=== PATIENT | male | born 1935 ===

== ENCOUNTER 2017-06-25 14:21 | Observation (INO) | payer MEDICARE ==
[2017-06-25] MEDS ORDERED: DiphenhydrAMINE 50 mg/ml Inj IV STA (15:29)
[2017-06-25] MEDS ORDERED: Albuterol 0.083% Inhal Sol (2.5 mg/3 mL) UD INH STA (15:29)
--- NOTE | 2017-06-25 15:58 | ED PDOC ---
HPI: Allergic Reaction Time Seen by Provider: 06/25/17 14:36 Chief Complaint (Nursing): Allergic Reaction Chief Complaint (Provider): Allergic reaction History Per: Patient History/Exam Limitations: no limitations Onset/Duration Of Symptoms: Hrs (this morning) Current Symptoms Are (Timing): Still Present Associated Symptoms: Skin Rash (trunk), Swelling (upper lip), Itching, Redness ( trunk). denies: Trouble Swallowing, Chest Pain Home/EMS Treatment: None Additional Complaint(s): Ulysses Kelsey is an 81 year old male, with a past medical history of hypertension, who presents to the emergency department complaining of upper lip swelling and itchy rash on trunk onset since this morning. Patient states he woke up and noticed the swelling and redness on trunk. He denies drinking, eating or using anything new. Patient reports he is currently taking lisinopril. He denies any tongue or throat swelling, difficulty breathing or swallowing, chest pain, cough or other medical complaints. PMD: Dr. Albina Villela (Crypt[facility]ator) Past Medical History Reviewed: Historical Data, Nursing Documentation, Vital Signs Vital Signs: Last Vital Signs Temp 98.0 F 06/25/17 14:25 Pulse 88 06/25/17 15:09 Resp 18 06/25/17 15:09 BP 175/113 H 06/25/17 14:25 Pulse Ox 99 06/25/17 15:09 - Medical History PMH: COPD, HTN - Surgical History Surgical History: Hernia Repair - Family History Family History: States: Unknown Family Hx - Social History Current smoker - smoking cessation education provided: No Alcohol: None Drugs: Denies - Home Medications Home Medications: Ambulatory Orders Medication Instructions Recorded Albuterol HFA [Ventolin HFA 90 2 puff IH Q6H PRN 06/25/17 mcg/actuation (8 g)] Bicalutamide [Casodex] 50 mg PO DAILY 06/25/17 Fluticasone Propionate [Flovent 2 puff IH Q12 06/25/17 Hfa] Tamsulosin [Flomax] 0.4 mg PO DAILY 06/25/17 amLODIPine [Norvasc] 5 mg PO DAILY #30 tab 06/26/17 - Allergies Allergies/Adverse Reactions: Allergies Allergy/AdvReac Type Severity Reaction Status Date / Time No Known Allergies Allergy Verified 06/25/17 14:25 Review of Systems ROS Statement: Except As Marked, All Systems Reviewed And Found Negative ENT: Positive for: Mouth Swelling (upper lip swollen. ). Negative for: Throat Swelling (difficulty swallowing.), Other (tongue swelling. ) Cardiovascular: Negative for: Chest Pain Respiratory: Negative for: Cough, Shortness of Breath Skin: Positive for: Rash (redness on trunk) Physical Exam - Reviewed Nursing Documentation Reviewed: Yes Vital Signs Reviewed: Yes - Physical Exam Appears: Positive for: Non-toxic Head Exam: Positive for: ATRAUMATIC, NORMAL INSPECTION, NORMOCEPHALIC Skin: Positive for: Warm, Dry, Rash (limited patchy urticaria-like rash on trunk ) Eye Exam: Positive for: Normal appearance, EOMI, PERRL ENT: Positive for: Other (upper lip swelling. No tongue swelling, throat is clear. No edema, no pharyngeal or tonsil edema.). Negative for: Tonsillar Swelling Neck: Positive for: Painless ROM, Supple Cardiovascular/Chest: Positive for: Regular Rate, Rhythm. Negative for: Murmur Respiratory: Positive for: Wheezing (diffused b/l). Negative for: Respiratory Distress Gastrointestinal/Abdominal: Positive for: Normal Exam, Soft. Negative for: Tenderness, Guarding, Rebound Back: Positive for: Normal Inspection. Negative for: L CVA Tenderness, R CVA Tenderness, Vertebral Tenderness Extremity: Positive for: Normal ROM. 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 Differential includes but not limited to anaphylaxis, allergic reaction to lisinopril or other agent. MARC/ARBs induced angioedema. Initial Plan: --Albuterol 2.5 mg INH --Benadryl 25 mg IV --Pepcid 20 mg IVP --SOLU-medrol 125 mg IVP --Peak flow pre/post Tx --Reevaluation Time: 17:17 Upon reevaulation, patient's wheezing is improved, lip swelling is still present , and urticaria is still present, but improved. Patient will be admitted for anaphylactic reaction and asthma attack. Time: 19:00 Patient signed over to Dr. Enamorado pending reevaluation. Scribe Attestation: Documented by Mayank Gutierrez and Vin Foster, acting as scribes for Ashlie Truong MD Provider Scribe Attestation: All medical record entries made by the Scribe were at my direction and personally dictated by me. I have reviewed the chart and agree that the record accurately reflects my personal performance of the history, physical exam, medical decision making, and the department course for this patient. I have also personally directed, reviewed, and agree with the discharge instructions and disposition.
[2017-06-25 17:51] LABS: BASO # 0.1 K/uL (0.0-0.2); BASO % 0.6 % (0.0-2.0); EOS # 0.1 K/uL (0.0-0.7); EOS % 1.5 % (0.0-4.0); HEMOGLOBIN 14.8 g/dL (12.0-18.0); LYMPH # 2.8 K/uL (1.0-4.3); LYMPH % 32.8 % (20.0-40.0); MEAN CELL VOLUME 97.5 fl (80.0-94.0); MEAN CORPUSCULAR HEMOGLOBIN 33.1 pg (27.0-31.0); MEAN PLATELET VOLUME 8.7 fl (7.2-11.7); MONO # 0.5 K/uL (0.0-0.8); MONO % 6.2 % (0.0-10.0); NEUT % 58.9 % (50.0-75.0); NRBC % 0.1 % (0.0-0.0); RBC 4.47 Mil/uL (4.40-5.90); RED CELL DISTRIBUTION WIDTH 13.1 % (11.5-14.5); WHITE BLOOD COUNT 8.5 K/uL (4.8-10.8)
[2017-06-25] MEDS ORDERED: EPINEPHrine 1 mg/ml (1:1000) Inj SC ONE (17:54)
[2017-06-25 17:56] LABS: BLOOD UREA NITROGEN 21 mg/dl (9-20); CALCIUM 9.2 mg/dL (8.4-10.2); GFR AFRICAN-AMERICAN > 60; GFR NON-AFRICAN AMERICAN 58
--- NOTE | 2017-06-25 17:56 | CP.PCM.CON ---
History of Present Illness - History of Present Illness History of Present Illness: Reason for Consult: eval of lip swelling HPI: 81 year old male PMH HTN on Lisinopril which he has been taking for years, BPH, hx prostate ca, asthma/COPD, presents with a one day history of upper lip swelling without any involvement of the tongue or throat. Patient has no difficulty breathing or swallowing and states that it has improved since this morning. This also presented with some mild urticarial rashes around his neck and mild wheezing. These have since resolved. He has received H1/H2 blockers, steroids, and a mild dose of epinephrine with improvement. Possible angioedema, however patient has been taking Lisinopril for years. This presents more like an allergic reaction given the urticaria, however patient denies exposure to any new agents/foods. He is HD stable, in no acute distress. As his symptoms are resolving, patient is medically stable for discharge home and follow up with PCP in a few days. Also recommend cessation of Lisinopril, possible adjusting medications to Norvasc with follow up with his primary care physician. ROS: per HPI all other systems reviewed and negative PMSH: as above, Hernia repair FH: denies SH: denies tobacco, ETOH, IVDU. Meds: as below NKDA Past Patient History - Past Social History Alcohol: None Drugs: Denies - CARDIAC Hx Hypertension: Yes - PULMONARY Hx Chronic Obstructive Pulmonary Disease (COPD): Yes - PSYCHIATRIC Hx Substance Use: No - SURGICAL HISTORY Hx Herniorrhaphy: Yes - ANESTHESIA Hx Anesthesia: Yes Hx Anesthesia Reactions: No Meds Allergies/Adverse Reactions: Allergies Allergy/AdvReac Type Severity Reaction Status Date / Time No Known Allergies Allergy Verified 06/25/17 14:25 - Medications Medications: Current Medications Epinephrine HCl (Epinephrine) 0.1 mg SC ONCE ONE Stop: 06/25/17 17:55 Physical Exam - Constitutional Appears: Non-toxic, No Acute Distress - Head Exam Head Exam: ATRAUMATIC, NORMOCEPHALIC - Eye Exam Eye Exam: EOMI, Normal appearance Pupil Exam: NORMAL ACCOMODATION - ENT Exam ENT Exam: Mucous Membranes Moist, Normal Oropharynx Additional comments: upper lip swelling, improving. - Respiratory Exam Respiratory Exam: Clear to Auscultation Bilateral, NORMAL BREATHING PATTERN. absent: Rales, Rhonchi, Wheezes - Cardiovascular Exam Cardiovascular Exam: RRR, +S1, +S2. absent: Irregular Rhythm - GI/Abdominal Exam GI & Abdominal Exam: Normal Bowel Sounds, Soft. absent: Mass, Organomegaly, Tenderness - Extremities Exam Extremities exam: Positive for: normal capillary refill, normal inspection. Negative for: calf tenderness - Back Exam Back exam: absent: CVA tenderness (L), CVA tenderness (R) - Neurological Exam Neurological exam: Alert, Oriented x3 - Psychiatric Exam Psychiatric exam: Normal Affect, Normal Mood - Skin Skin Exam: Dry, Warm Results - Vital Signs Recent Vital Signs: Last Vital Signs Temp 98.0 F 06/25/17 14:25 Pulse 88 06/25/17 15:09 Resp 18 06/25/17 15:09 BP 175/113 H 06/25/17 14:25 Pulse Ox 99 06/25/17 17:26 - Labs Result Diagrams: 06/25/17 17:25 06/25/17 17:25 Labs: Laboratory Results - last 24 hr 06/25/17 17:25 Sodium 138 Potassium 4.5 Chloride 101 Carbon Dioxide 24 Anion Gap 18 BUN 21 H Creatinine 1.2 Est GFR ( Amer) > 60 Est GFR (Non-Af Amer) 58 Random Glucose 82 Calcium 9.2 Assessment & Plan - Assessment and Plan (Free Text) Plan: ASSESSMENT AND PLAN: Lip swelling likely secondary to allergic reaction vs angioedema HTN Asthma/COPD BPH Hx Prostate Ca 81 year old male PMH HTN on Lisinopril which he has been taking for years, BPH, hx prostate ca, asthma/COPD, presents with a one day history of upper lip swelling without any involvement of the tongue or throat. Patient has no difficulty breathing or swallowing and states that it has improved since this morning. This also presented with some mild urticarial rashes around his neck and mild wheezing. These have since resolved. He has received H1/H2 blockers, steroids, and a mild dose of epinephrine with improvement. Possible angioedema, however patient has been taking Lisinopril for years. This presents more like an allergic reaction given the urticaria, however patient denies exposure to any new agents/foods. He is HD stable, in no acute distress. As his symptoms are resolving, patient is medically stable for discharge home and follow up with PCP in a few days. Also recommend cessation of Lisinopril, possible adjusting medications to Norvasc with follow up with his primary care physician.
--- NOTE | 2017-06-25 19:28 | ED PDOC ---
- Laboratory Results Result Diagrams: 06/25/17 17:25 06/25/17 17:25 - ECG O2 Sat by Pulse Oximetry: 99 (RA) Medical Decision Making Medical Decision Making: Time: 19:00 Patient signed over to me by Dr. Truong pending reevaluation. Time: 21:15 Patient was signed out to provider by Dr. Truong for evaluation. Upon reevaluation patient has persistent angioedema of the lips. Given patient' s age, comorbidities, and administration of epinephrine, patient will be admitted for observation. Scribe Attestation: Documented by Vin Foster, acting as a scribe for Rashad Enamorado MD. Provider Scribe Attestation: All medical record entries made by the Scribe were at my direction and personally dictated by me. I have reviewed the chart and agree that the record accurately reflects my personal performance of the history, physical exam, medical decision making, and the department course for this patient. I have also personally directed, reviewed, and agree with the discharge instructions and disposition. 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
--- NOTE | 2017-06-25 21:20 | CP.PCM.HP ---
History of Present Illness - History of Present Illness History of Present Illness: PMD: Tika Montemayor MD Chief complaint: Swollen upper lip with rash to Trunk The Patient was seen and examined in the ED HPI: 81 years old male, living Alone with hx of HTN treated with Lisinopril, Prostate Ca and Asthma, came with one day of swelling of the upper lip, not associated with difficulty to breath, swallow nor speak. The tongue nor throat were swollen. He did refer a pruritus rash about his neck and upper chest with mild wheezes. He refers no new foods nor medication and has never had lip swelling in the past. In the ED he was treated with Epinephrine , Benadryl, Methylprednisolone and Pepcid which showed some improvement initially. The plan was to discharge the patient with plan of cessation of the MARC inhibitor and to start Norvasc, but because of persistence of the upper lip swelling and and renewed enlargening, decision was made to maintain the patient in Hospital for Observation. PMH: HTN; Asthma; Prostate Cancer PSH: Umbilical Hernia repair SH: Denies Smoking: No Alcohol use; no illegal drug use; Live Alone FH: State: no known family hx Allergies NKDA Medication: Reviewed Present on Admission - Present on Admission Any Indicators Present on Admission: No History of DVT/PE: No History of Uncontrolled Diabetes: No Urinary Catheter: No Decubitus Ulcer Present: No Review of Systems - Constitutional Constitutional: absent: Anorexia, Chills, Fatigue, Fever, Headache, Lethargy - EENT Eyes: absent: Diplopia, Floaters, Requires Corrective Lenses, Sees Flashes Ears: absent: Decreased Hearing, Ear Discharge, Ear Pain Nose/Mouth/Throat: Lip Swelling. absent: Epistaxis, Nasal Congestion, Nasal Discharge - Cardiovascular Cardiovascular: Dyspnea. absent: Chest Pain, Leg Edema, Pedal Edema Additional comments: SOB on exertion - Respiratory Respiratory: Dyspnea, Wheezing. absent: Cough - Gastrointestinal Gastrointestinal: absent: Constipation, Diarrhea, Nausea, Vomiting - Genitourinary Genitourinary: absent: Dysuria, Flank Pain, Hematuria, Urinary Frequency - Musculoskeletal Musculoskeletal: absent: Back Pain, Muscle Cramps, Myalgias - Integumentary Integumentary: Rash. absent: Pruritus, Skin Ulcer, Sores, Striae Additional comments: Upper lip swelling Pruritic rash on upper chest and neck - Neurological Neurological: absent: Confusion, Dizziness, Focal Weakness, Weakness - Psychiatric Psychiatric: absent: Anxiety, Depression, Panic Attacks - Endocrine Endocrine: absent: Palpitations, Polydipsia, Polyphagia, Polyuria - Hematologic/Lymphatic Hematologic: absent: Easy Bleeding, Easy Bruising Past Patient History - Past Medical History & Family History Past Medical History?: Yes - Past Social History Smoking Status: Never Smoked Chewing Tobacco Use: No Cigar Use: No Alcohol: None Drugs: Denies Home Situation {Lives}: Alone - CARDIAC Hx Hypertension: Yes - PULMONARY Hx Chronic Obstructive Pulmonary Disease (COPD): Yes - NEUROLOGICAL Hx Neurological Disorder: No - HEENT Hx HEENT Problems: No - RENAL Hx Chronic Kidney Disease: No - ENDOCRINE/METABOLIC Hx Endocrine Disorders: No - HEMATOLOGICAL/ONCOLOGICAL Hx Blood Disorders: No - INTEGUMENTARY Hx Dermatological Problems: No - MUSCULOSKELETAL/RHEUMATOLOGICAL Hx Musculoskeletal Disorders: No - GASTROINTESTINAL Hx Gastrointestinal Disorders: No - GENITOURINARY/GYNECOLOGICAL Hx Genitourinary Disorders: No - PSYCHIATRIC Hx Psychophysiologic Disorder: No Hx Substance Use: No - SURGICAL HISTORY Hx Herniorrhaphy: Yes - ANESTHESIA Hx Anesthesia: Yes Hx Anesthesia Reactions: No Meds Allergies/Adverse Reactions: Allergies Allergy/AdvReac Type Severity Reaction Status Date / Time No Known Allergies Allergy Verified 06/25/17 14:25 Physical Exam - Constitutional Appears: No Acute Distress - Head Exam Head Exam: ATRAUMATIC, NORMAL INSPECTION, NORMOCEPHALIC - Eye Exam Eye Exam: EOMI, Normal appearance Pupil Exam: NORMAL ACCOMODATION, PERRL - ENT Exam ENT Exam: Mucous Membranes Moist Additional comments: Mouth with upper lip swollen, non tender, no erythemia. - Neck Exam Neck exam: Positive for: Full Rom, Normal Inspection. Negative for: Lymphadenopathy, Tenderness - Respiratory Exam Additional comments: Mild wheezes at both lung bahena No rales nor rhonchi - Cardiovascular Exam Cardiovascular Exam: REGULAR RHYTHM, RRR, +S1, +S2 Additional comments: Systolic murmur III/ at the base - GI/Abdominal Exam Additional comments: Obese abdomen, firm, non-tender, no viceromegales - Rectal Exam Rectal Exam: Deferred - Extremities Exam Extremities exam: Positive for: full ROM, normal inspection. Negative for: calf tenderness, joint swelling, pedal edema - Back Exam Back exam: NORMAL INSPECTION. absent: CVA tenderness (L), CVA tenderness (R) - Neurological Exam Neurological exam: Alert, CN II-XII Intact, Oriented x3, Reflexes Normal - Psychiatric Exam Psychiatric exam: Normal Affect, Normal Mood - Skin Skin Exam: Dry, Intact, Normal Color, Rash, Warm Additional comments: Erythematos rash on trunk as per ED not seen by me Results - Vital Signs Recent Vital Signs: Last Vital Signs Temp 98.0 F 06/25/17 14:25 Pulse 76 06/25/17 18:33 Resp 18 06/25/17 18:33 BP 137/88 06/25/17 18:33 Pulse Ox 99 06/25/17 19:28 - Labs Result Diagrams: 06/25/17 17:25 06/25/17 17:25 Labs: Laboratory Results - last 24 hr 06/25/17 06/25/17 17:25 17:25 WBC 8.5 RBC 4.47 Hgb 14.8 Hct 43.6 MCV 97.5 H MCH 33.1 H MCHC 34.0 RDW 13.1 Plt Count 204 MPV 8.7 Neut % (Auto) 58.9 Lymph % (Auto) 32.8 Barry % (Auto) 6.2 Eos % (Auto) 1.5 Baso % (Auto) 0.6 Neut # (Auto) 5.0 Lymph # (Auto) 2.8 Barry # (Auto) 0.5 Eos # (Auto) 0.1 Baso # (Auto) 0.1 Sodium 138 Potassium 4.5 Chloride 101 Carbon Dioxide 24 Anion Gap 18 BUN 21 H Creatinine 1.2 Est GFR ( Amer) > 60 Est GFR (Non-Af Amer) 58 Random Glucose 82 Calcium 9.2 Assessment & Plan - Assessment and Plan (Free Text) Assessment: #. Angeoedema #. Dehydration #. HTN #. Asthma #. Prostate Cancer Plan: 81 years old male, living Alone with hx of HTN treated with Lisinopril, Prostate Ca and Asthma, came with one day of swelling of the upper lip, with a pruritus rash about his neck and upper chest with mild wheezes. In the ED he was treated with Epinephrine , Benadryl, Methylprednisolone and Pepcid which showed some improvement initially, but because of persistence of the upper lip swelling and renewed enlargening, decision was made to maintain the patient in Hospital for Observation. #. Angeoedema with signs of an Allergic reaction. consider MARC inhibitor as the cause of the Angioedema - Benadryl - Methylprednisone - Monitor Blood pressure, breathing andswallowing #. Dehydration - IV Fluid with D5/0.9NS #. HTN - D/C Lisinopril - Norvasc - Follow blood pressures #. Asthma - Albuterol #. Prostate Cancer - Continue Casodex 3. DVT Prophylaxis with Lovenox #. Code Status: Full - Date & Time Date: 06/25/17 Time: 21:20
[2017-06-25] MEDS ORDERED: Albuterol 0.083% Inhal Sol (2.5 mg/3 mL) UD INH PRN (21:39)
[2017-06-25] MEDS ORDERED: methylPREDNISolone 40 MG in Sodium Chloride 0.9% 50 ML IVPB SCH (22:00)
[2017-06-25] MEDS ORDERED: Dextrose 5%/0.45% NS 1,000 ML IV SCH (23:15)
[2017-06-25] MEDS: MethylPREDNISolone 40 mg Vial IVP SCH (23:41)
[2017-06-26 00:36] VITALS: RESP 18
[2017-06-26] MEDS: MethylPREDNISolone 40 mg Vial IVP SCH ×2 (05:38→08:34)
[2017-06-26] MEDS ORDERED: Influenza Vaccine 18yr & older 0.5 ML/45 MCG SYR IM ONE (09:00)
[2017-06-26] MEDS ORDERED: Enoxaparin 40 mg Syringe SC SCH (09:00)
--- NOTE | 2017-06-26 10:02 | CP.PCM.DIS ---
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7) 06/25/17 17:25 Neut % (Auto) 58.9 % (50.0-75.0) 06/25/17 17:25 Lymph % (Auto) 32.8 % (20.0-40.0) 06/25/17 17:25 Hudson % (Auto) 6.2 % (0.0-10.0) 06/25/17 17:25 Eos % (Auto) 1.5 % (0.0-4.0) 06/25/17 17:25 Baso % (Auto) 0.6 % (0.0-2.0) 06/25/17 17:25 Neut # (Auto) 5.0 K/uL (1.8-7.0) 06/25/17 17:25 Lymph # (Auto) 2.8 K/uL (1.0-4.3) 06/25/17 17:25 Hudson # (Auto) 0.5 K/uL (0.0-0.8) 06/25/17 17:25 Eos # (Auto) 0.1 K/uL (0.0-0.7) 06/25/17 17:25 Baso # (Auto) 0.1 K/uL (0.0-0.2) 06/25/17 17:25 Sodium 138 mmol/l (132-148) 06/25/17 17:25 Potassium 4.5 MMOL/L (3.6-5.0) 06/25/17 17:25 Chloride 101 mmol/L (98-107) 06/25/17 17:25 Carbon Dioxide 24 mmol/L (22-30) 06/25/17 17:25 Anion Gap 18 (10-20) 06/25/17 17:25 BUN 21 mg/dl (9-20) H 06/25/17 17:25 Creatinine 1.2 mg/dl (0.8-1.5) 06/25/17 17:25 Est GFR ( Amer) > 60 06/25/17 17:25 Est GFR (Non-Af Amer) 58 06/25/17 17:25 Random Glucose 82 mg/dL (75-110) 06/25/17 17:25 Calcium 9.2 mg/dL (8.4-10.2) 06/25/17 17:25 - Hospital Course Hospital Course: 81 y.o male with PMHx of BPH, prostate cancer, asthma/COPD presented to the ED with upper lip swelling without involvement of tongue or throat and urticarial rashes around neck and as well as wheezing. Patient's angioedema of lip, urticaria, and wheezing most likely an allergic reaction to Lisinopril although has been taking Lisinopril for years. No difficulty breathing or swallowing. Denies food or drug allergies on admission, denies trying nothing. Patient given albuterol, Benadryl, Pepcid, and started on Methylprednisone IV with symptoms improved initially. Decision was made to discharge patient in the ED, stop MARC inhibitor and start Norvasc, however patient noted to be persistence upper lip swelling and renewed enlarging and decision made to admit patient for closer observation. During hospital stay, patient started Norvasc and MARC inhibitor was discontinued, and continued Methylprednisone and Benadryl. Patient improved clinically with wheezing improved, no rash, and diminished lip swelling. Patient hemodynamically and medically stable, and decision was made to discharge home with follow up with PCP. Discharge Exam - Head Exam Head Exam: ATRAUMATIC, NORMAL INSPECTION, NORMOCEPHALIC - Eye Exam Eye Exam: EOMI, Normal appearance, PERRL Pupil Exam: NORMAL ACCOMODATION, PERRL - ENT Exam ENT Exam: Mucous Membranes Moist, Normal Exam Additional comments: no nose obstruction, no nasal congestion or nasal discharge - Respiratory Exam Respiratory Exam: absent: Rales, Rhonchi, Respiratory Distress, Stridor Additional comments: improved wheezing b/l wheezing L>R less SOB on exertion - Cardiovascular Exam Cardiovascular Exam: REGULAR RHYTHM, +S1, +S2 Additional comments: Systolic murmur III/ at the base - GI/Abdominal Exam GI & Abdominal Exam: Normal Bowel Sounds, Unremarkable Additional comments: Obese abdomen, firm, non-tender, no visceromegaly - Extremities Exam Extremities exam: normal inspection Additional comments: No edema to the LE - Back Exam Back exam: NORMAL INSPECTION. absent: CVA tenderness (L), CVA tenderness (R), rash noted - Neurological Exam Neurological exam: Alert, Oriented x3 - Psychiatric Exam Psychiatric exam: Normal Affect, Normal Mood - Skin Skin Exam: Dry, Intact, Normal Color, Warm - Additional Findings Additional findings: Diminished upper lip swelling No swelling to tongue No swelling to lower lip No rash noted to upper chest or neck Discharge Plan - Discharge Medications Prescriptions: amLODIPine [Norvasc] 5 mg PO DAILY #30 tab - Follow Up Plan Condition: STABLE Disposition: HOME/ ROUTINE Instructions: Angioedema, Angioedema (DC), Urticaria (GEN), Hypertension (GEN) , Amlodipine Additional Instructions: Start Amlodipine Discontinue Lisinopril Rx amlodipine f/u with PCP within 1 week
[2017-06-26 13:32] VITALS: BP 119/71; PULSE 90; TEMP 98.4; O2SAT 95
--- NOTE | 2017-06-26 23:48 | CARD ---
APPROVED REPORT EKG Measurement Heart [id number] ID [id number] <Conclusion> Normal sinus rhythm Left bundle branch block Abnormal ECG
== END 2017-06-26 14:27 | disposition home or self-care (01) ==
LOC: H.ER 14:21 → H.ERHOLD 20:38 → H.TEL 22:18
PROVIDERS: ADMIT Internal Medicine; ATTEND Internal Medicine
DX: T78.3XXA Angioneurotic edema, initial encounter (principal); E86.0 Dehydration; I10 Essential (primary) hypertension; Z85.46 Personal history of malignant neoplasm of prostate; C61 Malignant neoplasm of prostate; T46.4X5A Adverse effect of angiotensin-converting-enzyme inhibitors, initial encounter; E66.9 Obesity, unspecified; Z68.31 Body mass index [BMI] 31.0-31.9, adult; J44.9 Chronic obstructive pulmonary disease, unspecified; Z23 Encounter for immunization
CPT/HCPCS: 80048; 85025; 93005; 94640; 96372; 96374; 96375; 96376; 99285; G0008; G0378; J0171; J1200; J1650; J2920; J2930; J7042; Q2035